=== PATIENT | male | born 1980 | race Caucasian/White ===

== ENCOUNTER 2019-06-15 02:34 | Emergency (ER) | payer OTHER ==
--- NOTE | 2019-06-15 04:11 | CR ---
INDICATION: Shortness of breath COMPARISON: None TECHNIQUE: Frontal and lateral views of the chest FINDINGS: The lungs are clear. There is no pleural effusion or pneumothorax. The cardiomediastinal silhouette is normal. The osseous structures are unremarkable. IMPRESSION: No acute intrathoracic process. Dictated by Delonte Penn MD @ Jun 15 2019 4:09AM Signed by Dr. Delonte Penn @ Jun 15 2019 4:09AM
[2019-06-15 04:33] LABS: BLOOD UREA NITROGEN,BUN 20 mg/dL (7.0-18.0); CARBON DIOXIDE,CO2 29.2 mmol/L (21.0-32.0); CHLORIDE,CL 102 mmol/L (98-107); GLUCOSE RANDOM 103 mg/dL (74-106); POTASSIUM,K 4.7 mmol/L (3.5-5.1); SODIUM,NA 138 mmol/L (136-148)
[2019-06-15] MEDS ORDERED: Ibuprofen 800 MG Tab PO ONE (04:52)
[2019-06-15] MEDS ORDERED: Oseltamivir 75 MG Cap PO ONE (04:52)
--- NOTE | 2019-06-15 04:56 | EDM.PDOC ---
ED HPI GENERAL MEDICAL PROBLEM - General Chief Complaint: Fever Stated Complaint: FEVER, ACHES Time Seen by Provider: 06/15/19 02:59 - History of Present Illness INITIAL COMMENTS - FREE TEXT/NARRATIVE: HPI 38-year-old morbidly obese male presents for evaluation of approximately 12 hours of sudden onset fever and myalgias. No cough, sore throat, runny nose, neck stiffness, headache, abdominal pain, GI upset, rashes, change in passage of flatus, urine, stool, or changes in vision or hearing. Patient was company by his spouse who notes that she had similar symptoms to the patients and preceded by 1-2 days. M/S/F/SocHx notable for: please see HPI; remainder reviewed with patient and in chart. ROS: Negative constitutional, eye, cardiovascular, pulmonary, GI, , MSK, skin , neurologic, psychiatric, endocrine unless noted in the HPI. Exam HR 109, RR 18, BP 133/79, T 38.8C, SaO2 94% on room air. Gen: pleasant, uncomfortable but not in extremis. HEENT: Normocephalic, atraumatic. * Ears - TMs clear bilaterally, bilateral external auditory canals without erythema, inflammation, or swelling, bilateral mastoids nontender without overlying erythema, swelling, or warmth. * Eyes - Bilateral eyes without injection, swelling, or discharge, no proptosis or periorbital erythema, swelling, warmth, or tenderness. * Mouth - Anterior oropharynx with MMM, no lesions appreciated, floor of the mouth is soft and without swelling. Posterior oropharynx without swelling, exudate, erythema, lesions, or post-nasal drip, uvula midline. * Nose - Nares without crusting or discharge. * Neck - Neck supple without posterior anterior cervical chain lymphadenopathy bilaterally. Resp: Clear to auscultation bilaterally, normal work of breathing without accessory muscle usage. Card: Regular rate and rhythm with no murmurs, rubs or gallops. Extremities warm and well perfused. GI: Non-tender to palpation throughout all quadrants, no masses or organomegaly appreciated. : Deferred MSK: No visible deformities, strength and tone without visually appreciable deficit. Neuro: alert and oriented 3, no facial asymmetry, vision and hearing WNL. Neck supple, full ROM, negative Brudzinskis sign. Heme/Lymph: Deferred Skin: Normal color with no visible lesions (other than noted above). Psych: Mood and affect appropriate. Labs / Imaging (pertinent): WBC 6.45, HB 14.0, lactic 0.9, sodium 130, potassium 4.7, AST 19, ALT 42. Influenza A & B negative. CXR: no acute intrathoracic process. MDM Previous chart, nursing note, and vitals reviewed. A: 38-year-old morbidly obese male presents for evaluation of approximately 12 hours of sudden onset fever and myalgias. DDx: influenza, parainfluenza virus, viral rhinosinusitis, bacterial pneumonia, septicemia. Evaluation: The overall clinical picture is strongly consistent with influenza and a positive rapid antigen test was obtained, this was obtained as the patient wished to pursue treatment with oseltamivir. While a concurrent parainfluenza virus or viral rhinosinusitis cannot be fully excluded, these are felt to be less likely given the classic onset of symptoms. Bacterial pneumonia as well septicemia were considered on the differential, however given the lack of a focal infiltrate on chest x-ray as well as the absence of significant leukocytosis as well as the overall clinical picture these are both felt to be relatively excluded. While the patient had a negative rapid influenza test, influencer remains high on the differential, discussion was had with the patient regarding treatment with oseltamivir, including the possible clinical benefits as well as expected side effects and the patient elected to pursued treatment with oseltamivir. Home care instructions and return to care indications were provided. The patient was prescribed 75 mg PO q12hr x5 days as well as Zofran for treatment of expected possible nausea. Repeat evaluation at 4:50 AM with patient resting comfortably. No new symptoms. Neck supple. No neck stiffness. Impression: Fever, myalgias, cough. ?Influenza. 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 Pain Score (Numeric/FACES): 5 - Related Data Allergies Allergy/AdvReac Type Severity Reaction Status Date / Time meperidine [From Demerol] Allergy Change Verified 06/15/19 02:57 Mental Status Home Meds: Home Meds Ondansetron [Zofran ODT] 4 mg PO Q6H PRN #12 tab.dis 06/15/19 [Rx] Oseltamivir [Tamiflu] 75 mg PO DAILY #4 cap 06/15/19 [Rx] Past Medical History - Past Health History Medical/Surgical History: Denies Medical/Surgical History - Past Surgical History Male Surgical History: Reports: Vasectomy Social & Family History - Family History Family Medical History: Noncontributory - Tobacco Use Smoking Status *Q: Never Smoker - Recreational Drug Use Recreational Drug Use: No ED ROS GENERAL - Review of Systems Review Of Systems: See Below ED EXAM, GENERAL - Physical Exam Exam: See Below Course - Vital Signs Last Recorded V/S: Last Vital Signs Temp 38.8 C H 06/15/19 02:45 Pulse 109 H 06/15/19 02:45 Resp 18 06/15/19 02:45 BP 133/79 06/15/19 02:45 Pulse Ox 94 L 06/15/19 02:45 - Orders/Labs/Meds Labs: Laboratory Tests 06/15/19 06/15/19 06/15/19 Range/Units 04:00 04:00 04:00 WBC 6.45 (4.0-11.0) K/uL RBC 4.76 (4.50-5.90) M/uL Hgb 14.0 (13.0-17.0) g/dL Hct 41.2 (38.0-50.0) % MCV 86.6 (80.0-98.0) fL MCH 29.4 (27.0-32.0) pg MCHC 34.0 (31.0-37.0) g/dL RDW Std Deviation 44.1 (28.0-62.0) fl RDW Coeff of Mary 14 (11.0-15.0) % Plt Count 197 (150-400) K/uL MPV 10.10 (7.40-12.00) fL Neut % (Auto) 68.2 (48.0-80.0) % Lymph % (Auto) 11.6 L (16.0-40.0) % [place] % (Auto) 17.1 H (0.0-15.0) % Eos % (Auto) 2.6 (0.0-7.0) % Baso % (Auto) 0.5 (0.0-1.5) % Neut # (Auto) 4.4 (1.4-5.7) K/uL Lymph # (Auto) 0.8 (0.6-2.4) K/uL [place] # (Auto) 1.1 H (0.0-0.8) K/uL Eos # (Auto) 0.2 (0.0-0.7) K/uL Baso # (Auto) 0.0 (0.0-0.1) K/uL Nucleated RBC % 0.0 /100WBC Nucleated RBCs # 0 K/uL Lactate 0.9 (0.20-2.00) mmol/L Sodium 138 (136-148) mmol/L Potassium 4.7 (3.5-5.1) mmol/L Chloride 102 (98-107) mmol/L Carbon Dioxide 29.2 (21.0-32.0) mmol/L BUN 20 H (7.0-18.0) mg/dL Creatinine 1.2 (0.8-1.3) mg/dL Est Cr Clr Drug Dosing 93.41 mL/min Estimated GFR (MDRD) > 60.0 ml/min Glucose 103 (74-106) mg/dL Calcium 9.9 (8.5-10.1) mg/dL Total Bilirubin 0.4 (0.2-1.0) mg/dL AST 19 (15-37) IU/L ALT 42 (14-63) IU/L Alkaline Phosphatase 88 (46-116) U/L Total Protein 7.5 (6.4-8.2) g/dL Albumin 3.7 (3.4-5.0) g/dL Globulin 3.8 (2.6-4.0) g/dL Albumin/Globulin Ratio 1.0 (0.9-1.6) Meds: Medications Discontinued Medications Generic Name Dose Route Start Last Admin Trade Name Freq PRN Reason Stop Dose Admin Ibuprofen 800 mg 06/15/19 04:52 Motrin PO 06/15/19 04:53 ONETIME ONE Oseltamivir Phosphate 75 mg 06/15/19 04:52 Tamiflu PO 06/15/19 04:53 ONETIME ONE Departure - Departure Time of Disposition: 04:55 Disposition: Home, Self-Care 01 Clinical Impression: Influenza - Discharge Information Prescriptions: Ondansetron [Zofran ODT] 4 mg PO Q6H PRN #12 tab.dis PRN Reason: Nausea Oseltamivir [Tamiflu] 75 mg PO DAILY #4 cap Referrals: PCP,Not In Area [Primary Care Provider] - Additional Instructions: You were in seen in the [facility] Emergency Department for evaluation of fever and muscle aches, you are tentatively believed to have a viral syndrome, and influenza is considered to be the most likely. Please read and follow all of the instructions below. Please follow up with your primary care physician in 2 days for repeat evaluation. When calling for follow-up care, please make the office aware that this follow-up is from your recent emergency room visit. If for any reason you are refused follow-up, please contact the [facility] Emergency Department at and asked to speak to the emergency department charge nurse. Your care today was limited to identifying and treating emergent medical problems only. Many people have subtle differences in their test results that require follow up with their outpatient physician(s) to correctly determine if this represents a normal variation or concerning abnormality with respect to your specific health. The care given to you today was limited to identifying and treating emergent medical problems - you need to request a copy of all of your medical records from today's visit and follow up with your outpatient physician(s) to review both today's visit and your overall health. If you have any new symptoms or if you are at all concerned about your health please return immediately to the emergency department. What is the flu? The flu is a viral infection that can cause fever, cough, body aches, and other symptoms. There are different forms of the flu, including the "seasonal" flu, the 0144-2218 pandemic H1N1 flu (also called the "swine" flu), and the bird flu. All forms of the flu are caused by viruses. The medical term for the flu is "influenza." All forms of the flu can cause fevers, cough, headaches or body aches, and a sore throat or runny nose. Return to the emergency department if you have any of the following: * Have trouble breathing or are short of breath * Feel pain or pressure in your chest or belly * Get suddenly dizzy * Feel confused * Have severe vomiting * If you are breathing fast, have trouble breathing, are if you turn blue or purple * If you are excessively fatigued you have difficulty waking up * If you start getting better from the flu but then have worsening sickness, this could represent a secondary bacterial infection. * If you develop a fever, rash, neck stiffness, headaches, or bright lights bother you. * If you are otherwise concerned about your health * If you decide to go to a walk-in clinic or a hospital because of the flu, tell someone right away why you are there. The staff might ask you to wear a mask or to wait someplace where you are less likely to spread your infection. Home Care The primary treatment for influenza is supportive care. Please stay well- hydrated, rest, consume a light diet, and - if you do not have any allergies or other reasons not to - you may take ibuprofen and acetaminophen as directed on the bottle for symptomatic relief from your fevers and aches. Do not go to work or school until your fever has been gone for at least 24 hours, without a taking fever-reducing medicine, such as acetaminophen or ibuprofen. If you work in a healthcare setting taking care of patients, you might need to stay home longer if you are still coughing. Also, always cover your mouth and nose with the inside of your elbow when you cough or sneeze. Oseltamivir (Brand Name: Tamiflu) Oseltamivir is used to treat symptoms caused by the influenza virus. It may help make the symptoms of influenza (such as stuffy nose, cough, sore throat, fever/chills, aches, tiredness) less severe and shortens the recovery time by 1- 2 days. This medication works by stopping the influenza virus from growing. It is not a substitute for the influenza vaccine. Oseltamivir How To Use: * Read the Patient Information Leaflet if available from your pharmacist before you start taking this medicine. If you have any questions, consult your doctor or pharmacist. Take this medication by mouth with or without food. * You may take it with food or milk to minimize stomach upset. Take this medication as soon as influenza symptoms appear or as soon as possible after you have been exposed to the influenza. Oseltamivir works best if you start taking it within 2 days of either of these events. If you have the influenza, take oseltamivir as directed by your doctor, usually twice a day for 5 days. * The dosage is based on your medical condition, kidney function, and response to treatment. In children the dosage is also based on weight. * This medication works best when the amount of medicine in your body is kept at a constant level. Therefore, take this drug at evenly spaced intervals at the same time(s) every day. * Continue to take it for the time stamp assembler prescribed. Stopping the medication too early may allow the virus to continue to grow, which may result in a relapse of the infection or failure to protect you from the influenza. * Tell your doctor if your condition persists or worsens or if new symptoms appear. Oseltamivir - Side Effects: * Nausea and vomiting may occur. If either of these effects persist or worsen, notify your doctor or pharmacist promptly. * Remember that your doctor has prescribed this medication because he or she has judged that the benefit to you is greater than the risk of side effects. Many people using this medication do not have serious side effects. * The influenza itself or oseltamivir may rarely cause serious mental/mood changes. This may be more likely in children. Tell your doctor right away of any signs of unusual behavior, including: confusion, agitation, self-injury. * A very serious allergic reaction to this drug is rare. However, get medical help right away if you notice any symptoms of a serious allergic reaction, including: rash, itching/swelling (especially of the face/tongue/throat), severe dizziness, trouble breathing. This is not a complete list of possible side effects. If you notice other effects not listed above, contact your doctor or pharmacist. Oseltamivir Precautions: * Before taking oseltamivir, tell your doctor or pharmacist if you are allergic to it; or if you have any other allergies. This product may contain inactive ingredients, which can cause allergic reactions or other problems. Talk to your pharmacist for more details. * Before using this medication, tell your doctor or pharmacist your medical history, especially of: kidney disease (including dialysis treatment). * Before having surgery, tell your doctor or dentist about all the products you use (including prescription drugs, nonprescription drugs, and herbal products). * During , this medication should be used only when clearly needed. Discuss the risks and benefits with your doctor. * This medication passes into breast milk but is unlikely to harm a nursing . Consult your doctor before breast-feeding. Oseltamivir Drug Interactions: * Drug interactions may change how your medications work or increase your risk for serious side effects. This document does not contain all possible drug interactions. Keep a list of all the products you use (including prescription/ nonprescription drugs and herbal products) and share it with your doctor and pharmacist. Do not start, stop, or change the dosage of any medicines without your doctor's approval. * Tell your doctor if you have received influenza vaccine in the nose within 2 weeks before treatment with this medication. This medication may lower your protection from influenza vaccine given in the nose. Wait at least 2 days after ending treatment with this medication before receiving influenza vaccine given in the nose. Oseltamivir Missed Dose: * If you miss a dose, use it as soon as you remember. If it is within 2 hours of your next dose, skip the missed dose and resume your usual dosing schedule. Do not double the dose to catch up. Oseltamivir Storage: * Store at room temperature away from light and moisture. Do not store in the bathroom. Keep all medications away from children and pets. * Do not flush medications down the toilet or pour them into a drain unless instructed to do so. Properly discard this product when it is or no longer needed. Consult your pharmacist or local waste disposal company for more details about how to safely discard your product. You make take over the counter Acetaminophen (Tylenol) and Ibuprofen (Motrin or Aleve) as directed below for relief of pain. Take 600 mg of ibuprofen (three 200 mg tablets) with a glass of water every 6-8 hours as needed for pain or fever. Do not take if you have ulcers, GI bleeding, are , or are allergic to ibuprofen. Take 1,000 mg of acetaminophen (two 500 mg tablets) with a glass of water every 6-8 hours as needed for pain. Do not take if you are allergic to acetaminophen. If you have liver disease, please reduce your dose to a maximum of 2,000 mg per day. You can take these medications at the same time or on separate schedules. Do not take for more than 10 days. Do not take with alcohol or other acetaminophen containing medications. This medication may cause a mildly upset stomach, if so take it with a small snack. Stop taking it if you have persistent abdominal pain, heartburn, or any stomach pain. Do not take this medication if you have known ulcers. Please read the warnings at the end of this document regarding these medications. IBUPROFEN WARNING: This drug may infrequently cause serious (rarely fatal) bleeding from the stomach or intestines. Also, related drugs rarely have caused blood clots to form, resulting in heart attacks and strokes. This medication might also rarely cause similar problems. Talk to your doctor or pharmacist about the benefits and risks of treatment, as well as other possible medication choices. If you notice any of the following rare but very serious side effects, stop taking ibuprofen and seek immediate medical attention: black stools, persistent stomach/abdominal pain, vomit that looks like coffee grounds, chest pain, weakness on one side of the body, sudden vision changes, slurred speech. IBUPROFEN SIDE EFFECTS: Upset stomach, nausea, vomiting, heartburn, headache, diarrhea, constipation, drowsiness, and dizziness may occur. If any of these effects persist or worsen, notify your doctor or pharmacist promptly. If your doctor has directed you to use this medication, remember that he or she has judged that the benefit to you is greater than the risk of side effects. Many people using this medication do not have serious side effects. Tell your doctor immediately if any of these serious side effects occur: stomach pain, swelling of the hands or feet, sudden or unexplained weight gain, ringing in the ears ( tinnitus). Tell your doctor immediately if any of these unlikely but serious side effects occur: vision changes, rapid or pounding heartbeat, easy bruising or bleeding, difficult/painful swallowing. Tell your doctor immediately if any of these highly unlikely but very serious side effects occur: change in amount of urine, severe headache, very stiff neck, mental/mood changes, persistent sore throat or fever. This drug may rarely cause serious (possibly fatal) liver disease. If you notice any of the following highly unlikely but very serious side effects, stop taking ibuprofen and consult your doctor or pharmacist immediately: yellowing eyes and skin, dark urine, unusual/extreme tiredness. An allergic reaction to this drug is unlikely, but seek immediate medical attention if it occurs. Symptoms of an allergic reaction include: rash, itching/ swelling (especially of the face/tongue/throat), severe dizziness, trouble breathing. This is not a complete list of possible side effects. ACETAMINOPHEN SIDE EFFECTS: This drug usually has no side effects. If you do not have liver problems, the maximum dose of acetaminophen for adults is 4 grams per day (4000 milligrams). Taking more than the maximum daily amount may cause serious (possibly fatal) liver damage. Get medical help right away if you have any of the following symptoms of liver damage: persistent nausea/vomiting, extreme tiredness, stomach/abdominal pain, yellowing eyes/skin, dark urine. If you have liver problems, consult your doctor or pharmacist for a safe dosage of this medication. A very serious allergic reaction to this drug is rare. However , get medical help right away if you notice any symptoms of a serious allergic reaction, including: rash, itching/swelling (especially of the face/tongue/ throat), severe dizziness, trouble breathing. This is not a complete list of possible side effects. If you notice other effects not listed above, contact your doctor or pharmacist. DRUG INTERACTIONS: Your healthcare professionals (e.g., doctor or pharmacist) may already be aware of any possible drug interactions and may be monitoring you for it. Do not start, stop or change the dosage of any medicine before checking with them first. This drug should not be used with the following medications because very serious interactions may occur: cidofovir, ketorolac. If you are currently using any of these medications listed above, tell your doctor or pharmacist before starting ibuprofen. Before using this medication, tell your doctor or pharmacist of all prescription and nonprescription/herbal products you may use, especially of: anti-platelet drugs (e.g., cilostazol, clopidogrel), oral bisphosphonates (e.g., alendronate), other medications for arthritis (e.g., aspirin, methotrexate), "blood thinners" (e.g., enoxaparin, heparin, warfarin), corticosteroids (e.g., prednisone), cyclosporine, desmopressin, high blood pressure drugs (including PAPO inhibitors such as captopril, angiotensin II receptor antagonists such as losartan, and beta- blockers such as metoprolol), lithium, pemetrexed, "water pills" (diuretics such as furosemide, hydrochlorothiazide, triamterene). Check all prescription and nonprescription medicine labels carefully for other pain/fever drugs ( NSAIDs such as aspirin, celecoxib, naproxen). These drugs are similar to ibuprofen, so taking one of these drugs while also taking ibuprofen may increase your risk of side effects. Consult your doctor or pharmacist for more details. However, if your doctor has prescribed low doses of aspirin to prevent heart attack or stroke (usually at dosages of 81-325 milligrams a day), you should continue to take the aspirin. Daily use of ibuprofen may decrease aspirin 's ability to prevent heart attack/stroke. Talk to your doctor about using a different medication (e.g., acetaminophen) to treat pain/fever. If you must take ibuprofen, talk to your doctor about possibly taking immediate-release aspirin (not enteric-coated) while also taking the ibuprofen dose apart from your aspirin dose. Do not increase your daily dose of aspirin or change the way you take aspirin/other medications without your doctor's approval. This document does not contain all possible interactions. Therefore, before using this product, tell your doctor or pharmacist of all the products you use. Keep a list of all your medications with you, and share the list with your doctor and pharmacist. Ondansetron (Brand Name: Zofran) Take one tablet every 6 hours as needed for nausea SIDE EFFECTS: Headache, fever, lightheadedness, dizziness, drowsiness, tiredness , constipation. If these effects persist or worsen, notify your doctor promptly. Many people using this medication do not have serious side effects. Tell your doctor right away if you have any serious side effects, including: stomach pain, muscle stiffness/spasm, vision changes (e.g., temporary loss of vision, blurred vision, uncontrollable eye movements). Get medical help right away if any of these rare but very serious side effects occur: chest pain, fainting, slow/fast/irregular heartbeat. A very serious allergic reaction to this drug is rare. However, get medical help right away if you notice any of the following symptoms of a serious allergic reaction: rash, itching/swelling ( especially of the face/tongue/throat), severe dizziness, trouble breathing. This is not a complete list of possible side effects. If you notice other effects not listed above, contact your doctor or pharmacist. PRECAUTIONS: Before using ondansetron, tell your doctor or pharmacist if you are allergic to it; or to other serotonin blockers (e.g., granisetron); or if you have any other allergies. This product may contain inactive ingredients, which can cause allergic reactions or other problems. Talk to your pharmacist for more details. Before using this medication, tell your doctor or pharmacist your medical history, especially of: irregular heartbeat, liver disease, stomach /intestinal problems (e.g., recent abdominal surgery, ileus, swelling). Ondansetron may cause a condition that affects the heart rhythm (QT prolongation ). QT prolongation can infrequently result in serious (rarely fatal) fast/ irregular heartbeat and other symptoms (such as severe dizziness, fainting) that require immediate medical attention. The risk of QT prolongation may be increased if you have certain medical conditions or are taking other drugs that may affect the heart rhythm (see also Drug Interactions section). Before using ondansetron, tell your doctor or pharmacist if you have any of the following conditions: certain heart problems (heart failure, slow heartbeat, QT prolongation in the EKG), family history of certain heart problems (QT prolongation in the EKG, sudden cardiac ). Low levels of potassium or magnesium in the blood may also increase your risk of QT prolongation. This risk may increase if you use certain drugs (such as diuretics/"water pills") or if you have conditions such as severe sweating, diarrhea, or vomiting. Talk to your doctor about using ondansetron safely. This drug may make you dizzy or drowsy or cause blurred vision. Do not drive, use machinery, or do any activity that requires alertness or clear vision until you are sure you can perform such activities safely. Limit alcoholic beverages. Infants younger than 5 months may be more sensitive to the effects of this drug, especially diarrhea. During , this medication should be used only when clearly needed. Discuss the risks and benefits with your doctor. It is not known if this drug passes into breast milk. Consult your doctor before breast-feeding. DRUG INTERACTIONS: Drug interactions may change how your medications work or increase your risk for serious side effects. This document does not contain all possible drug interactions. Keep a list of all the products you use (including prescription/nonprescription drugs and herbal products) and share it with your doctor and pharmacist. Do not start, stop, or change the dosage of any medicines without your doctor's approval. Some products that may interact with this drug include: apomorphine, tramadol. Many drugs besides ondansetron may affect the heart rhythm (QT prolongation), including dofetilide, pimozide, procainamide, amiodarone, quinidine, sotalol, macrolide antibiotics (such as erythromycin), among others. Therefore, before using ondansetron, report all medications you are currently using to your doctor or pharmacist. Prescriptions: If you are uninsured or have financial difficulties with filling your prescription(s), you may consider using a free pharmacy discount service such as [employer] ([employer]) or [employer] ([employer]). These services allow you to search for a medication on your phone (or computer) and obtain a coupon that usually has a significant discount from the list bhandari at a pharmacy. Your physician as well as [facility] does not have a financial relationship with either of these services. You may also wish to speak with your physician to determine if lower cost prescriptions are possible. Obtaining primary care: 1. [facility] provides pediatrics (children), family medicine (children, adults, and some obstetrical care), and internal medicine (adults). Further specialty care is also available. Same day appointments are available. They may be contacted at [phone] and are open Sunday through Sunday 8 AM to 5 PM. The [facility] are located at [facility], [address] [place] [address]. 2. [facility] offers family medicine, internal medicine, [facility], and further specialty care. [facility] may be contacted at [phone]. [facility] is located at [address] [facility] [address]. 3. If you have health insurance, please also contact your insurer for a list of accepting providers under your policy, you may contact these providers for further health care. Occupational health: Work related injuries may consider following up with [facility], . Occupational health services are located at [address] [place] [address] and are open Sunday through Sunday from 7: 30 am to 5:00 pm. Obstetrical and Gynecological Care: [facility], , Sunday through Sunday 8 AM to 5 PM. [address] [address]. Eyecare: If you have an eye injury you should follow up with your assisted living manager or with [facility], at [phone] or [phone] , they are located at [address] [place] [address]. Dental Care Kuldeep Man DDS. [address] [facility] [place], [place]. Ph. [phone] Rufus Kaufman Magda DDS MS. [address] [facility] [address], [place], [place]. Ph. [phone] Dorantes Caitie Valenzuela DDS. 10 06/[address] [place] [address]. Ph. [phone] Kale Felder DDS. [address] [facility] [address] [place], [place]. Ph. [phone] Miguel Peter DDS PC. [address] [facility] [address] [place], [place]. Ph. Bisi Heard DDS. [address] [facility]. Ph. [phone] [facility]. [address] [place], [place]. Ph. [phone] [facility]. [address] [place] [address], [place], [place]. Ph. [phone] [facility] [address] [place] [phone]. Ph. [facility]. [address] [place] [address] [address] [place], [place]. Ph. [facility]. [address] [place], [place]. Ph. [phone] What is the flu? The flu is a viral infection that can cause fever, cough, body aches, and other symptoms. There are different forms of the flu, including the "seasonal" flu, the 1763-4059 pandemic H1N1 flu (also called the "swine" flu), and the bird flu. All forms of the flu are caused by viruses. The medical term for the flu is "influenza." All forms of the flu can cause fevers, cough, headaches or body aches, and a sore throat or runny nose. Return to the emergency department if you have any of the following: * Have trouble breathing or are short of breath * Feel pain or pressure in your chest or belly * Get suddenly dizzy * Feel confused * Have severe vomiting * If you are breathing fast, have trouble breathing, are if you turn blue or purple * If you are excessively fatigued you have difficulty waking up * If you start getting better from the flu but then have worsening sickness, this could represent a secondary bacterial infection. * If you develop a fever, rash, neck stiffness, headaches, or bright lights bother you. * If you are otherwise concerned about your health * If you decide to go to a walk-in clinic or a hospital because of the flu, tell someone right away why you are there. The staff might ask you to wear a mask or to wait someplace where you are less likely to spread your infection. Home Care The primary treatment for influenza is supportive care. Please stay well- hydrated, rest, consume a light diet, and - if you do not have any allergies or other reasons not to - you may take ibuprofen and acetaminophen as directed on the bottle for symptomatic relief from your fevers and aches. Do not go to work or school until your fever has been gone for at least 24 hours, without a taking fever-reducing medicine, such as acetaminophen or ibuprofen. If you work in a healthcare setting taking care of patients, you might need to stay home longer if you are still coughing. Also, always cover your mouth and nose with the inside of your elbow when you cough or sneeze. Sepsis Event Note - Evaluation Sepsis Screening Result: Possible Sepsis Risk - Focused Exam Vital Signs: Vital Signs Temp Pulse Resp BP Pulse Ox 06/15/19 02:45 38.8 C H 109 H 18 133/79 94 L Date Exam was Performed: 06/15/19 Time Exam was Performed: 04:54
== END 2019-06-15 05:05 | disposition home or self-care (01) ==
LOC: MW.ED 02:34
DX: J11.1 Influenza due to unidentified influenza virus with other respiratory manifestations (principal)
CPT/HCPCS: 36415; 71046; 80053; 83605; 85025; 87804; 99283; A9270